=== PATIENT | female | born 1955 | race Caucasian/White ===

== ENCOUNTER 2018-01-01 17:20 | Emergency (ER) | payer OTHER, SELFPAY ==
[2018-01-01 18:21] VITALS: BP 157/88; PULSE 75; RESP 16; TEMP 37.4; O2SAT 98; BMI 30.4
--- NOTE | 2018-01-01 18:25 | DI.RAD.S_ITS ---
PROCEDURE: XR KNEE RT 1TO2V INDICATIONS: fall right knee injury TECHNIQUE: 2 views of the knee were acquired. COMPARISON: None. FINDINGS: Bones: There is a displaced tibial plateau fracture which extends from the intercondylar notch to the lateral aspect of the tibial metaphysis. Soft tissues: There is a large lipohemarthrosis. IMPRESSION: Displaced tibial plateau fracture and lipohemarthrosis. Dictated by: Filomena Vinson M.D. on 01/01/2018 at 18:53 Approved by: Filomena Vinson M.D. on 01/01/2018 at 18:54
--- NOTE | 2018-01-01 18:51 | DI.CT.S_ITS ---
PROCEDURE: CT LE RT WO CON INDICATIONS: fracture TECHNIQUE: Noncontrast 1-1.5 mm axial sections acquired from the mid-patella to the proximal tibia, with coronal and sagittal reformats. COMPARISON: None. FINDINGS: Image quality: Excellent. Bones: There is a sagittally oriented fracture through the right tibial plateau which extends from the lateral aspect of the intercondylar notch through the medial tibial metaphysis. There is no depression of the tibial plateau. No other fractures. There are moderate tricompartmental osteophytes. Soft tissues: There is a lipohemarthrosis which is only partially characterized on this view. IMPRESSION: 1. Sagittally oriented tibial plateau fracture which extends from the lateral tibial plateau through the medial tibial metaphysis. Dictated by: Filomena Vinson M.D. on 01/01/2018 at 19:43 Approved by: Filomena Vinson M.D. on 01/01/2018 at 19:45
--- NOTE | 2018-01-01 21:03 | ED_ITS ---
HPI - Extremity Injury (Lower) General Chief Complaint: Extremity Injury, Lower Stated Complaint: RIGHT LEG INJURY FALL Time Seen by Provider: 01/01/18 18:51 Source: patient Mode of arrival: wheelchair Limitations: no limitations History of Present Illness HPI Narrative: patient is a 62-year-old female presents right knee pain. She fell on right on [place] She tripped and fall no other injuries she is unable bear weight no numbness or tingling. MD complaint: knee injury Related Data Previous Rx's Medication Instructions Recorded hydrocodone-acetaminophen [Lorcet 1 tab PO Q4-6H PRN #10 tab 01/01/18 (hydrocodone)] Review of Systems Review of Systems GENERAL: Denies chills,fever HEENT: Denies throat pain RESPIRATORY: Denies dyspnea, cough, wheezing CARDIOVASCULAR: Denies chest pain, palpitations GASTROINTESTINAL: Denies nausea, vomiting MUSCULOSKELETAL: See HPI SKIN: No rash, no laceration, no pruritus NEUROLOGIC: Denies weakness, dizziness, headache, numbness 8 point review of systems is negative except for those stated above and HPI PFSH Medical History Healthy adult (Acute) Up to date with tetanus toxoid immunization (Acute) Social History Smoking Status: Never smoker Exam Initial Vital Signs Initial Vital Signs: Vital Signs Temperature 99.3 F 01/01/18 18:21 Pulse Rate 75 01/01/18 18:21 Respiratory Rate 16 01/01/18 18:21 Blood Pressure 157/88 H 01/01/18 18:21 Pulse Oximetry 98 01/01/18 18:21 GENERAL: Well-appearing, well-nourished and in no acute distress. CARDIOVASCULAR: peripheral pulses in tact, cap refill <2 sec RESPIRATORY: No respiratory distress, speaks in full sentences without difficulty [ABDOMEN: Soft, nontender, no guarding or rebound] EXTREMITIES: Normal range of motion, no clubbing or edema. Neurovascularly intact right lower: Tender laterally with mild swelling no gross bony deformities neurovascularly intact no hip pain NEUROLOGICAL: Cranial nerves II through XII grossly intact. Normal gait and speech. SKIN: Warm, dry, no petechiae, no rashes or lesions. Course Orders Ordered: ED Orders 01/01/18 18:25 XR knee RT 1to2V Stat 01/01/18 18:51 CT LE RT wo con Stat Discontinued Medications Hydrocodone Bitart/Acetaminophen (Vicodin Prepack) 1 bottle MISC SEEINSTR ONE Stop: 01/01/18 21:04 Last Admin: 01/01/18 21:15 Dose: 1 bottle Morphine Sulfate (Morphine) 4 mg SUBCUT NOW ONE Stop: 01/01/18 21:04 Last Admin: 01/01/18 21:14 Dose: 4 mg Vital Signs - 8 hr 01/01/18 21:26 Pulse Rate 69 Respiratory Rate 17 Blood Pressure [Left Arm] 137/86 Pulse Oximetry 97 MDM - Extremity Injury (Lower) Imaging Data Right knee x-ray: Radiologist's impression: PROCEDURE: XR KNEE RT 1TO2V INDICATIONS: fall right knee injury TECHNIQUE: 2 views of the knee were acquired. COMPARISON: None. FINDINGS: Bones: There is a displaced tibial plateau fracture which extends from the intercondylar notch to the lateral aspect of the tibial metaphysis. Soft tissues: There is a large lipohemarthrosis. IMPRESSION: Displaced tibial plateau fracture and lipohemarthrosis. Dictated by: Filomena Vinson M.D. on 01/01/2018 at 18:[address]: Radiologist's impression: PROCEDURE: CT LE RT WO CON INDICATIONS: fracture TECHNIQUE: Noncontrast 1-1.5 mm axial sections acquired from the mid-patella to the proximal tibia, with coronal and sagittal reformats. COMPARISON: None. FINDINGS: Image quality: Excellent. Bones: There is a sagittally oriented fracture through the right tibial plateau which extends from the lateral aspect of the intercondylar notch through the medial tibial metaphysis. There is no depression of the tibial plateau. No other fractures. There are moderate tricompartmental osteophytes. Soft tissues: There is a lipohemarthrosis which is only partially characterized on this view. IMPRESSION: 1. Sagittally oriented tibial plateau fracture which extends from the lateral tibial plateau through the medial tibial metaphysis. Dictated by: Filomena Vinson M.D. on 01/01/2018 at 19:43 MDM Narrative Medical decision making narrative: Dr. Joyce has reviewed CT and x-ray himself recommend knee immobilizer nonweightbearing crutches pain control and follow up in clinic Discharge Plan Departure Patient Disposition: Home Clinical Impression: Tibial plateau fracture, right Discharge Date/Time: 01/01/18 21:41 Interventions: ED Discharge Assessment Last Done: 01/01/18 21:41 Instructions: DI for Tibial Plateau Fracture Activity Restrictions/Additional Instructions: *You have been diagnosed with right tibial fracture *What to do: ice elevate non-weightbearing use crutches keep immobilized *Continue to take medications as directed [place] 1 tablet every 4 hr or 2 tablets every 6 hr *Follow up with your primary care provider in 2-3 days, call Orthopedics tomorrow to schedule follow-up appointment *Return to ER if you should have numbness, tingling, any new, worsening or concerning symptoms CONTROLLED SUBSTANCE DISCHARGE (Narcotoic/benzodiazepine/Flexeril/Phenergan) 1. You have been prescribed narcotic medications, it does have acetaminophen/ Tylenol/paracetamol in it so do not take extra Tylenol or Tylenol containing products 2. Please understand that we cannot provide further refills of narcotics, benzodiazepines or controlled substances through the ED and her pain management will need to be through your provider. 3. While on these medications you cannot drive or operate heavy machinery. 4. You cannot sign legal documents or perform any duties such as this. 5. As long as you're taking opiate pain medications he should also be taking a stool softener such as Colace, Dulcolax, MiraLAX or prune juice, to help avoid constipation. Prescriptions: New hydrocodone-acetaminophen [Lorcet (hydrocodone)] 5-325 mg tablet 1 tab PO Q4-6H PRN (Reason: pain) Qty: 10 RF: 0 Referrals: Dario Joyce MD [Physician] -
[2018-01-01] MEDS: MORPHINE 4 MG/ML INJ SUBCUT (21:14)
[2018-01-01] MEDS: HYDROCODONE/ACET 5/325 PREPACK 1 BOTTLE MISC (21:15)
[2018-01-01 21:26] VITALS: BP 137/86; PULSE 69; RESP 17; O2SAT 97
== END 2018-01-01 21:41 | disposition home or self-care (01) ==
PROVIDERS: Emergency Provider Emergency Medicine
DX: S82.131A Displaced fracture of medial condyle of right tibia, initial encounter for closed fracture (principal); W01.0XXA Fall on same level from slipping, tripping and stumbling without subsequent striking against object, initial encounter
CPT/HCPCS: 73560; 73700; 99283; 99284; J2270